=== PATIENT | male | born 1965 | race Caucasian/White ===

== ENCOUNTER 2021-05-01 08:52 | Emergency (ER) | payer OTHER ==
[2021-05-01 11:55] LABS: BASOPHIL 0.5 % (0-2); EOSINOPHIL 0.9 % (0-5); HCT 49.1 % (42.0-52.0); HGB 16.1 g/dl (13.2-18.0); LYMPHOCYTE 27.5 % (15-48); MCHC 32.8 g/dL (32.0-36.0); MCV 88.5 fL (78.0-100.0); MONOCYTE 4.7 % (0-12); MPV 9.9 fL (6.0-9.5); NEUTROPHIL 65.7 % (41-80); NRBC 0; PLT 277 K/uL (150-400); RBC 5.55 M/uL (4.70-6.00); RDW 13.7 % (11.5-14.0); WBC 7.7 K/uL (4.0-10.5)
[2021-05-01 12:21] LABS: ALBUMIN 4.1 g/dL (3.4-5.0); BILIRUBIN - TOTAL 0.4 mg/dL (0.2-1.0); BUN/CREAT RATIO (CALC) 16.2 RATIO; CREATININE 0.8 mg/dL (0.67-1.17); GLOBULIN (CALCULATION) 4.5 g/dL; POTASSIUM 4.6 mmol/L (3.5-5.1); TOTAL PROTEIN 8.6 g/dL (6.4-8.2)
[2021-05-01 12:35] LABS: LACTIC ACID 1.4 mmol/L (0.4-1.9)
[2021-05-01 13:37] LABS: BILIRUBIN NEGATIVE (NEGATIVE); BLOOD NEGATIVE Ery/uL (NEGATIVE); CLARITY CLEAR (CLEAR); COLOR YELLOW (YELLOW); GLUCOSE (U) 3+ mg/dL (NORMAL); LEUKOCYTES NEGATIVE Leu/uL (NEGATIVE); NITRITE NEGATIVE (NEGATIVE); PROTEIN NEGATIVE (NEGATIVE); UROBILINOGEN 0.2 mg/dL (0.2-1.0); pH 5.5 (5.0-9.0)
[2021-05-01 13:46] LABS: SQUAMOUS EPITHELIAL CELLS RARE
[2021-05-01] MEDS ORDERED: ANTIVERT25 MG PO (14:58)
[2021-05-01] MEDS ORDERED: ONDANSETRON ODT4 MG PO (14:58)
== END 2021-05-01 15:40 | disposition home or self-care (01) ==
LOC: FER 08:52
PROVIDERS: Emergency Medicine; Physician Assistant
DX: R42 Dizziness and giddiness (principal); E11.9 Type 2 diabetes mellitus without complications; E66.9 Obesity, unspecified; Z88.8 Allergy status to other drugs, medicaments and biological substances; Z79.4 Long term (current) use of insulin; Z79.84 Long term (current) use of oral hypoglycemic drugs
CPT/HCPCS: 36415; 71046; 80053; 81001; 83605; 84145; 84484; 85025; 93005